=== PATIENT | female | born 1980 ===

== ENCOUNTER → 2024-10-01 11:52 | Outpatient (CLI) | payer OTHER ==
[2024-10-01 12:43] LABS: PH,URINE 5.5 (5.0-8.0); URINE APPEARANCE Clear; URINE BILIRRUBIN Negative (NEGATIVE); URINE BLOOD Negative; URINE COLOR Yellow; URINE GLUCOSE Negative (NEGATIVE); URINE KETONE Negative (NEGATIVE); URINE LEUKOCYTE Negative; URINE NITRATE Negative; URINE PROTEIN Negative (NEGATIVE); URINE UROBILINOGEN 0.2 E.U./dl
[2024-10-01 12:49] LABS: URINE BACTERIA 4.8 uL (0.0-1933); URINE EPITHELIAL CELLS 9.4 uL (0.0-38.8); URINE RBC 3.6 uL (0.0-20.8); URINE WBC 3.6 uL (0.0-23.2)
[2024-10-01 12:50] LABS: URINE CAST 0.14 uL (0.0-1.40)
[2024-10-01 13:05] LABS: HEMATOCRIT 35.4 % (36.0-45.00); HEMOGLOBIN 12.1 g/dL (12.0-15.00); MEAN CORPUSCULAR HEMOGLOBIN 30.4 pg (27.00-32.0); MEAN CORPUSCULAR HGB CONC 34.2 g/dl (32.0-36.0); PLATELET COUNT 274 K/uL (150-450); RED BLOOD COUNT 3.98 M/uL (4.00-6.00); RED CELL DISTRIBUTION WIDTH 13.2 % (11.5-14.5)
[2024-10-01 13:41] LABS: ALBUMIN 3.9 gm/dL (3.4-5.0); BILIRUBIN TOTAL 0.57 mg/dL (0.3-1.2); CALCIUM 8.3 mg/dL (8.5-10.1); CREATININE SERUM 0.76 mg/dL (0.55-1.02); GFR 81.93; GLOBULINA 3.3 G/DL (2.4-3.5); POTASSIUM 3.81 mEq/L (3.5-5.1); T4 TOTAL 8.14 UG/DL (4.8-13.9); TOTAL PROTEIN 7.2 gm/dL (6.4-8.2); TSH 1.13 uIU/mL (0.358-3.74)
[2024-10-01 14:34] LABS: T3 TOTAL 0.843 ng/ml (0.846-2.02); VITAMIN D3 25 HYDROXY 29.59 ng/ml (30-120)
[2024-10-03 10:06] LABS: FOLLICLE STIMULATING HORMONE 48.9 mIU/mL (.); PROGESTERONA 1.1 ng/mL (.)
[2024-10-05 20:08] LABS: CALCITONIN < 2.0 pg/mL (0.0-5.0)
[2024-10-07 00:08] LABS: DHEA 157 ng/dL (31-701)
== END | disposition home or self-care (01) ==
LOC: LAB 11:52
PROVIDERS: ATTEND Internal Medicine Rheumatology
DX: R80.9 Proteinuria, unspecified (principal); E04.2 Nontoxic multinodular goiter; E03.9 Hypothyroidism, unspecified; I10 Essential (primary) hypertension; E78.5 Hyperlipidemia, unspecified; D64.9 Anemia, unspecified; Z13.1 Encounter for screening for diabetes mellitus; N39.0 Urinary tract infection, site not specified; E55.9 Vitamin D deficiency, unspecified; E03.8 Other specified hypothyroidism; N95.1 Menopausal and female climacteric states; E78.2 Mixed hyperlipidemia; N39.8 Other specified disorders of urinary system

== ENCOUNTER 2024-10-01 12:40 | Outpatient (CLI) | payer OTHER | END 2024-10-01 12:41 | disposition home or self-care (01) | LOC: SONOGRAMA 12:40 → MAMO-SONO 12:40 → SONOGRAMA 12:41 | DX: N63 Unspecified lump in breast (principal); Z12.31 Encounter for screening mammogram for malignant neoplasm of breast; N60.11 Diffuse cystic mastopathy of right breast; N60.12 Diffuse cystic mastopathy of left breast ==

== ENCOUNTER 2025-01-07 15:33 | Outpatient (CLI) | payer OTHER | END 2025-01-07 15:34 | disposition home or self-care (01) | LOC: LAB 15:33 | DX: J06.9 Acute upper respiratory infection, unspecified (principal) ==

== ENCOUNTER 2025-07-29 08:26 | Outpatient (CLI) | payer OTHER ==
[2025-07-29 09:29] LABS: BASO % 0.6 % (0.1-1.2); EOS # 0.23 (0.04-0.54); EOS % 4.3 % (0.7-7.0); LYMPH # 1.68 (1.18-3.74); LYMPH % 31.7 % (19.3-53.1); MEAN PLATELET VOLUME 10.30 fl (9.4-12.4); MONO # 0.44 (0.24-0.82); MONO % 8.3 % (4.7-12.5); NEUT # 2.90 (1.56-6.13); NEUT % 54.7 % (34.0-71.1); RED CELL DISTRIBUTION WIDTH 13.2 % (11.6-14.4)
[2025-07-29 10:30] LABS: ALT/SGPT 22.0 U/L (12-78); AST/SGOT 20.0 U/L (15-37); BILIRUBIN TOTAL 0.44 mg/dL (0.3-1.2); BUN CREA RATIO 27.0 (7.0-25.0); CHOL HDL RATIO 2.4 (0-5.0); CREATININE SERUM 0.67 mg/dL (0.55-1.02); GFR 94.34; GLOBULINA 3.3 G/DL (2.4-3.5); GLUCOSE FASTING 90.0 mg/dL (65-100); HDL 76.0 mg/dl (40-60); LDL 94.0 mg/dl (0-130); OSMOLALITY SERUM 281.0 MOSM/KG (275-295); T4 TOTAL 7.2 UG/DL (4.8-13.9); TSH 1.85 uIU/mL (0.358-3.74); VLDL 14.0 (0-39)
[2025-07-29 11:20] LABS: T3 TOTAL 0.94 ng/ml (0.846-2.02); VITAMIN D3 25 HYDROXY 38.72 ng/ml (30-120)
[2025-07-30 09:08] LABS: ANTI THYROID PEROXIDASE 15.0 IU/mL (0-34); DHEA-SULFATE 82.0 ug/dL (41.2-243.7); ESTRADIOL SERUM 26.7 pg/mL (.); PROGESTERONA 0.3 ng/mL (.)
== END 2025-07-29 08:53 | disposition home or self-care (01) ==
LOC: LAB 08:26
DX: E55.9 Vitamin D deficiency, unspecified (principal); N95.1 Menopausal and female climacteric states; D51.9 Vitamin B12 deficiency anemia, unspecified; D64.89 Other specified anemias; E78.2 Mixed hyperlipidemia